=== PATIENT | female | born 1955 ===

== ENCOUNTER 2018-03-13 13:26 | Emergency (ER) | payer MEDICARE, OTHER ==
[2018-03-13 13:34] VITALS: BP 136/88
--- NOTE | 2018-03-13 13:46 | UC ---
Throat Pain/Nasal Craig HPI - HPI Summary HPI Summary: Pt. is a 63 y.o female who presents to the ER for a sore throat and productive cough x 3 days. Pt. history of CVA, blood pressure, diabetes. 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 Family states off is worse at night and productive times. No associated fever, chest pain, shortness of breath, abdominal pain, vomiting, diarrhea. No sick contacts. Symptoms are mild in severity. No current modifying factors. - History of Current Complaint Chief Complaint: UCRespiratory Stated Complaint: SORE THROAT Time Seen by Provider: 03/13/18 13:37 Hx Obtained From: Patient, Family/Mannequin Maker Pain Intensity: 4 - Allergies/Home Medications Allergies/Adverse Reactions: Allergies Allergy/AdvReac Type Severity Reaction Status Date / Time No Known Allergies Allergy Verified 03/13/18 13:34 Home Medications: Home Medications Glimepiride (NF) 2 mg PO DAILY 03/13/18 [History Confirmed 03/13/18] Metformin HCl 500 mg PO BID 03/13/18 [History Confirmed 03/13/18] PMH/Surg Hx/FS Hx/Imm Hx Previously Healthy: Yes - Surgical History Surgical History: None - Family History Known Family History: Positive: Hypertension - Social History Occupation: Retired Lives: With Family Alcohol Use: None Substance Use Type: None Smoking Status (MU): Former Smoker Type: Cigarettes Have You Smoked in the Last Year: Yes - Immunization History Most Recent Influenza Vaccination: declines Most Recent Tetanus Shot: UNSURE Most Recent Pneumonia Vaccination: declines Review of Systems All Other Systems Reviewed And Are Negative: Yes Constitutional: Positive: Negative. Negative: Fever, Chills Skin: Positive: Negative Eyes: Positive: Negative ENT: Positive: Sore Throat, Sinus Congestion Respiratory: Positive: Cough. Negative: Shortness Of Breath Cardiovascular: Positive: Negative Gastrointestinal: Positive: Negative Musculoskeletal: Positive: Negative Neurological: Positive: Negative Is Patient Immunocompromised?: Yes Physical Exam Triage Information Reviewed: Yes Appearance: Well-Appearing - Patient sitting in wheelchair no acute distress. Family present. Vital Signs: Initial Vital Signs Temp 98 F 03/13/18 13:30 Pulse 70 03/13/18 13:30 Resp 17 03/13/18 13:30 BP 136/88 03/13/18 13:30 Pulse Ox 97 03/13/18 13:30 Eye Exam: Normal Eyes: Positive: Conjunctiva Clear ENT: Positive: Pharyngeal erythema, TMs normal, Uvula midline. Negative: Tonsillar swelling, Tonsillar exudate Neck: Positive: Supple, Nontender Respiratory: Positive: Lungs clear, Normal breath sounds Cardiovascular: Positive: RRR Neurological Exam: Normal Neurological: Positive: Alert Psychological Exam: Normal Skin Exam: Normal Throat Pain/Nasal Course/Dx - Course Course Of Treatment: Patient presenting for cough and sore throat. She is afebrile with stable vital signs. Oxygen saturation is 97% on room air which is normal. Pain chest x-ray which is negative for infiltrate or acute changes, reading per radiology. Negative rapid strep. Patient has had no reported fevers. Suspect viral etiology. Will treat conservatively at this time and family agrees. Advised close follow-up with PCP if symptoms persist. To return to urgent care or go to the ER symptoms change or worsen. Patient and family understand and agree with plan. - Differential Dx/Diagnosis Differential Diagnosis/HQI/PQRI: Influenza, Pharyngitis, URI Provider Diagnosis: Viral syndrome Discharge - Sign-Out/Discharge Documenting (check all that apply): Patient Departure All imaging exams completed and their final reports reviewed: Yes - Discharge Plan Condition: Good Disposition: HOME Prescriptions: Benzonatate CAP* [Tessalon 100 MG CAP*] 100 mg PO TID PRN #12 cap PRN Reason: Cough Patient Education Materials: Viral Syndrome (ED) Referrals: Nadine Vasquez MD [Primary Care Provider] - Additional Instructions: Schedule a follow up appointment with PCP if symptoms persist Increase fluids and rest Return to or go to ER for shortness of breath, fever, or if concerned - Billing Disposition and Condition Condition: GOOD Disposition: Home
== END 2018-03-13 15:08 | disposition home or self-care (01) ==
LOC: UCEAST 13:26
DX: B34.9 Viral infection, unspecified (principal); Z87.891 Personal history of nicotine dependence
CPT/HCPCS: 71046; 87651; 99212; G0463